=== PATIENT | female | born 1950 | race Caucasian/White ===

== ENCOUNTER → 2022-02-04 | Outpatient (REF) ==
--- NOTE | 2022-02-04 09:50 | Diagnostic Imaging Report ---
CLINICAL HISTORY: Right hand pain. COMPARISON: None. TECHNIQUE: 3 views of the right hand. FINDINGS: There is no acute fracture or dislocation of the right hand. Alignment is anatomic. The imaged joint spaces are preserved. No focal osseous lesions are seen. IMPRESSION: 1. No acute fracture or dislocation in the right hand. Dictated by: Dictated on workstation # [id number]
--- NOTE | 2022-02-04 09:52 | Diagnostic Imaging Report ---
CLINICAL HISTORY: Right wrist pain. COMPARISON: None. TECHNIQUE: 2 views of the right wrist. FINDINGS: There is no acute fracture or dislocation of the right wrist. Alignment is anatomic. The imaged joint spaces are preserved. No focal osseous lesion. IMPRESSION: 1. No acute fracture or dislocation in the right wrist. Dictated by: Dictated on workstation # [id number]
== END | disposition home or self-care (01) ==
LOC: OCC 09:23
PROVIDERS: ATTEND Family Medicine
DX: Z01.818 Encounter for other preprocedural examination (principal)
CPT/HCPCS: 73100; 73130

== ENCOUNTER 2022-04-01 08:49 | Outpatient (RCR) | payer OTHER | END 2022-04-08 | disposition home or self-care (01) | PROVIDERS: ATTEND Nurse Practitioner Family | DX: S60.222D Contusion of left hand, subsequent encounter (principal); X58.XXXD Exposure to other specified factors, subsequent encounter ==

== ENCOUNTER → 2022-05-06 | Outpatient (CLI) | payer OTHER ==
--- NOTE | 2022-05-06 19:55 | Diagnostic Imaging Report ---
PROCEDURE: MRI right upper extremity without contrast. TECHNIQUE: Multiplanar, multisequence non contrast-enhanced MRI of the upper extremity was accomplished. INDICATION: Dorsal hand pain after crush injury. COMPARISON: Radiographs of 02/04/2022. FINDINGS: Bones: There is no abnormal bone marrow edema within the carpal, metacarpal or phalanges to suggest contusion. Subcortical cystic change at the dorsal aspect of the index finger metacarpal head is most likely degenerative in nature. Soft tissues: Flexor tendons are intact. No features of flexor retinaculum injury. The extensor tendons are normally positioned. No loculated fluid collection to indicate hematoma. Intrinsic muscles of the hand is normal in bulk. IMPRESSION: 1. No fracture or bone contusion. 2. Small subcortical cysts in the head of the index metacarpal is most likely degenerative in nature. A less likely possibility would be CPPD arthropathy. Dictated by: Dictated on workstation # [id number]
== END ==
LOC: EDBD 12:30 → RAD 12:30
PROVIDERS: ATTEND Nurse Practitioner Family
DX: M85.641 Other cyst of bone, right hand (principal)
CPT/HCPCS: 73218

== ENCOUNTER → 2022-05-06 | Outpatient (REF) | END | disposition home or self-care (01) | LOC: OCC 12:25 | PROVIDERS: ATTEND Nurse Practitioner Family | DX: Z01.818 Encounter for other preprocedural examination (principal) ==